=== PATIENT | male | born 1975 | race Caucasian/White ===

== ENCOUNTER 2020-11-29 17:35 | Emergency (ER) | payer OTHER ==
[2020-11-29] MEDS ORDERED: CEPHALEXIN 500MG STARTER PACK 4 CAP BTL PO STA (19:10)
[2020-11-29] MEDS ORDERED: SULFAMETH-TMP DS STARTER PACK 2 TAB BTL PO STA (19:10)
--- NOTE | 2020-11-29 19:15 | ED ---
General Adult HPI - General Chief complaint: Skin/Abscess/Foreign Body Stated complaint: Ingrown Hair on Stomach Time Seen by Provider: 11/29/20 18:36 Source: patient, RN notes reviewed Mode of arrival: ambulatory Limitations: no limitations - History of Present Illness Initial comments: 45-year-old male presents to the emergency room for a chief complaint of redness on the abdomen. Patient states this started a couple days ago as a small bump and now the redness is spreading. Patient denies any fevers. Patient states he does have Humira injections and the last one in this area was 2 weeks ago. Denies any other symptoms or constitutional symptoms.Patient has no other complaints at this time including shortness of breath, chest pain, abdominal pain, nausea or vomiting, headache, or visual changes. - Related Data Previous Rx's Medication Instructions Recorded Cephalexin [Keflex] 500 mg PO Q6HR 10 Days #40 cap 11/29/20 Sulfamethox-Tmp 800-160Mg [Bactrim 1 tab PO Q12HR #20 tab 11/29/20 DS 800-160 mg] Allergies Allergy/AdvReac Type Severity Reaction Status Date / Time No Known Allergies Allergy Verified 11/29/20 17:48 Review of Systems ROS Statement: Those systems with pertinent positive or pertinent negative responses have been documented in the HPI. ROS Other: All systems not noted in ROS Statement are negative. Past Medical History Additional Past Medical History / Comment(s): hyrocephulus. OCD History of Any Multi-Drug Resistant Organisms: None Reported Additional Past Surgical History / Comment(s): shunt Past Psychological History: Anxiety Smoking Status: Never smoker Past Alcohol Use History: None Reported Past Drug Use History: None Reported General Exam Limitations: no limitations General appearance: alert Head exam: Present: atraumatic Eye exam: Present: normal appearance ENT exam: Present: normal exam, mucous membranes moist Neck exam: Present: normal inspection, full ROM Respiratory exam: Present: normal lung sounds bilaterally. Absent: respiratory distress Cardiovascular Exam: Present: regular rate, normal rhythm GI/Abdominal exam: Present: soft, normal bowel sounds, other (Patient has a 6 cm x 3 cm area of erythema consistent with cellulitis on the left lower abdomen lateral to the umbilicus. There is a small 1 cm x 1 cm area of induration in the center of this.). Absent: distended, tenderness, guarding, rebound, rigid Course Vital Signs 11/29/20 17:45 Temperature 98.7 F Pulse Rate 94 Respiratory 20 Rate Blood Pressure 138/87 O2 Sat by Pulse 100 Oximetry Procedures - Incision & Drainage Consent Obtained: verbal consent Site: abdomen I&D Cleaning Method: Chloroprep Sterile Field Used?: Yes Scalpel Used: #11 (18 G needle) I&D Drainage Obtained: Blood Patient Tolerated Procedure: well, no complications Medical Decision Making - Medical Decision Making Patient does have an area of suspected cellulitis. I did attempt to incise and drain the small induration however no purulent material expelled. I did recommend he do warm compresses. He was started on antibiotics. He will speak to his physician about his Humira injections. He understands that he is immunocompromised and will return if symptoms are not improving. I discussed this case with attending Dr. Lilly who agrees with this assessment and treatment plan. Disposition Clinical Impression: Cellulitis Disposition: HOME SELF-CARE Condition: Good Instructions (If sedation given, give patient instructions): Abdominal Pain (ED) Additional Instructions: Please take antibiotics as directed. If redness is spreading across the line significantly return to the emergency room. Apply warm compresses as often as possible as there may be a small abscess as well Otherwise follow-up with your doctor in one to 2 days. 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 Prescriptions: Sulfamethox-Tmp 800-160Mg [Bactrim DS 800-160 mg] 1 tab PO Q12HR #20 tab Cephalexin [Keflex] 500 mg PO Q6HR 10 Days #40 cap Is patient prescribed a controlled substance at d/c from ED?: No Referrals: Angel Luis Shelton [STAFF PHYSICIAN] - 1-2 days Time of Disposition: 19:11
[2020-11-29 19:42] VITALS: BP 140/83; PULSE 98; RESP 18; TEMP 97.7
== END 2020-11-29 19:38 | disposition home or self-care (01) ==
LOC: EC 17:35
DX: L03.311 Cellulitis of abdominal wall (principal)
CPT/HCPCS: 10060; 99283

== ENCOUNTER 2021-02-17 07:24 | Inpatient (IN) | payer OTHER ==
[2021-02-17] MEDS ORDERED: VANCOMYCIN IV PER PHARMACY 1 EACH MISC MISCELLANE PRN (08:46)
[2021-02-17] MEDS ORDERED: AMPICILLIN-SULBACTAM 3 GM in SODIUM CHLORIDE 0.9% 100 ML IVPB STA (08:46)
[2021-02-17] MEDS ORDERED: NALOXONE 0.4 MG/ML 1 ML VIAL IV PRN (08:50)
[2021-02-17] MEDS ORDERED: traMADol 50 MG TAB PO PRN (08:50)
[2021-02-17] MEDS ORDERED: ACETAMINOPHEN TAB 325 MG TAB PO PRN (08:50)
--- NOTE | 2021-02-17 08:50 | ED ---
General Adult HPI - General Chief complaint: Skin/Abscess/Foreign Body Stated complaint: BOIL ON BACK SIDE Time Seen by Provider: 02/17/21 08:10 Source: patient, RN notes reviewed Mode of arrival: ambulatory Limitations: no limitations - History of Present Illness Initial comments: Patient is a pleasant 45-year-old male presenting to the emergency Department with complaints of a sore to his left buttocks. Onset of symptoms was around 6 days ago. This has been aggressively worsen, especially today. Patient is was a little bit of drainage today. Patient has had somewhat similar symptoms previously however not as severe. No fevers. Discomfort is moderate, increases with touch. 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 - Related Data Previous Rx's Medication Instructions Recorded Cephalexin [Keflex] 500 mg PO Q6HR 10 Days #40 cap 11/29/20 Sulfamethox-Tmp 800-160Mg [Bactrim 1 tab PO Q12HR #20 tab 11/29/20 DS 800-160 mg] Allergies Allergy/AdvReac Type Severity Reaction Status Date / Time No Known Allergies Allergy Verified 02/17/21 07:27 Review of Systems ROS Statement: Those systems with pertinent positive or pertinent negative responses have been documented in the HPI. ROS Other: All systems not noted in ROS Statement are negative. Constitutional: Denies: fever Eyes: Denies: eye pain ENT: Denies: ear pain Respiratory: Denies: cough Cardiovascular: Denies: chest pain Endocrine: Denies: fatigue Gastrointestinal: Denies: abdominal pain Genitourinary: Denies: dysuria Musculoskeletal: Denies: back pain Skin: Reports: as per HPI Neurological: Denies: headache Past Medical History Additional Past Medical History / Comment(s): hyrocephulus, ankelosis spinalitis. OCD History of Any Multi-Drug Resistant Organisms: None Reported Additional Past Surgical History / Comment(s): shunt Past Psychological History: Anxiety Smoking Status: Never smoker Past Alcohol Use History: None Reported Past Drug Use History: None Reported General Exam Limitations: no limitations General appearance: alert, in no apparent distress Head exam: Present: normocephalic Eye exam: Present: normal appearance Neck exam: Present: normal inspection Respiratory exam: Present: normal lung sounds bilaterally Cardiovascular Exam: Present: regular rate, normal rhythm GI/Abdominal exam: Present: soft. Absent: tenderness Extremities exam: Present: normal inspection Neurological exam: Present: alert Psychiatric exam: Present: normal affect, normal mood Skin exam: Present: other (Left side of buttocks with approximately 3 cm open abscess area with surrounding cellulitis approximately 4 x 8 cm) Course Vital Signs 02/17/21 07:27 Temperature 98.2 F Pulse Rate 87 Respiratory 18 Rate Blood Pressure 129/82 O2 Sat by Pulse 100 Oximetry Medical Decision Making - Medical Decision Making I was able to manually express moderate to large amount of pus, approximately 3- 5 mL. Secondary to patient having immunocompromised with Humira is felt patient could benefit from IV antibiotics. Case was discussed with Dr. tejada, who will admit covering for this [facility]. Disposition Clinical Impression: Abscess of buttock, left Disposition: ADMITTED IP TO THIS HOSP Is patient prescribed a controlled substance at d/c from ED?: No Referrals: Kati Guerrero NPC [Primary Care Provider] - 1-2 days Decision Time: 08:50
--- NOTE | 2021-02-17 09:05 | P.HPIM ---
History of Present Illness This is a pleasant 45 years old male with past medical history of ankylosing spondylitis on Humira, hydrocephalus, anxiety and a positive compulsive disorder. Presents because of left gluteal HAS noticed a few days ago with no history of trauma. No fever or abdominal pain, no nausea vomiting or diarrhea. No chest pain or dyspnea. No change in urine or bowel habits. Patient is afebrile and vitals stable. No labs or imaging were done. The emergency room he started on Unasyn and IV vancomycin and that 1 30 ml/h. Wound culture is ordered Review of Systems CONSTITUTIONAL: No fever, no malaise, no fatigue. HEENT: No recent visual problems or hearing problems. Denied any sore throat. CARDIOVASCULAR: No orthopnea, PND, no palpitations, no syncope. PULMONARY: No shortness of breath, no cough, no hemoptysis. GASTROINTESTINAL: No diarrhea, no nausea, no vomiting, no abdominal pain. Normoa ctive bowel sounds. NEUROLOGICAL: No headaches, no weakness, no numbness. HEMATOLOGICAL: Denies any bleeding or petechiae. GENITOURINARY: Denies any burning micturition, frequency, or urgency. MUSCULOSKELETAL/RHEUMATOLOGICAL: Denies any joint pain, swelling, or any muscle pain. ENDOCRINE: Denies any polyuria or polydipsia. Past Medical History Additional Past Medical History / Comment(s): hyrocephulus, ankelosis spinalitis. OCD History of Any Multi-Drug Resistant Organisms: None Reported Additional Past Surgical History / Comment(s): shunt Past Psychological History: Anxiety Smoking Status: Never smoker Past Alcohol Use History: None Reported Past Drug Use History: None Reported Medications and Allergies Home Medications Medication Instructions Recorded Confirmed Type Cephalexin [Keflex] 500 mg PO Q6HR 10 Days #40 cap 11/29/20 Rx Sulfamethox-Tmp 800-160Mg [Bactrim 1 tab PO Q12HR #20 tab 11/29/20 Rx DS 800-160 mg] Allergies Allergy/AdvReac Type Severity Reaction Status Date / Time No Known Allergies Allergy Verified 02/17/21 07:27 Physical Exam Vitals: Vital Signs Temp Pulse Resp BP Pulse Ox 02/17/21 07:27 98.2 F 87 18 129/82 100 Intake and Output 02/16/21 02/17/21 02/17/21 22:59 06:59 14:59 Other: Weight 54.431 kg GENERAL: The patient is alert and oriented x3, not in any acute distress. Well developed, well nourished. HEENT: Pupils are round and equally reacting to light. EOMI. No scleral icterus. No conjunctival pallor. Normocephalic, atraumatic. No pharyngeal erythema. No thyromegaly. CARDIOVASCULAR: S1 and S2 present. No murmurs, rubs, or gallops. PULMONARY: Chest is clear to auscultation, no wheezing or crackles. ABDOMEN: Soft, nontender, nondistended, normoactive bowel sounds. No palpable organomegaly. -Left gluteal abscess 1-2 inches with surrounding area of cellulitis, close to the gluteal fissure MUSCULOSKELETAL: No joint swelling or deformity. EXTREMITIES: No cyanosis, clubbing, or pedal edema. NEUROLOGICAL: Gross neurological examination did not reveal any focal deficits. SKIN: No rashes. No petechiae Assessment and Plan Assessment: Left gluteal abscess with surrounding cellulitis History of ankylosing spondylitis History of hydrocephalus History of OCD and anxiety, not in active tissue Plan: This is a pleasant 45 years old male who presents with Left gluteal abscess. Continue with IV antibiotics and normal saline. Consult surgery and ID team's Labs and medication were reviewed.. Continue same treatment. Continue with symptomatic treatment. Resume home medication. Monitor lytes and vitals. DVT and GI prophylaxis. Further recommendations depends on the clinical course of the patient DVT prophylaxis: Subcutaneous heparin GI Prophylaxis: Pepcid
[2021-02-17] MEDS ORDERED: VANCOMYCIN 1,000 MG in SODIUM CHLORIDE 0.9% 250 ML IVPB ONE (09:15)
[2021-02-17] MEDS: SODIUM CHLORIDE 0.9% 1,000 ML IV SCH (09:35)
[2021-02-17 09:38] LABS: Basophils # (A) 0.1 k/uL (0-0.2); Basophils % (A) 1 %; Eosinophils # (A) 0.1 k/uL (0-0.7); Eosinophils % (A) 2 %; HCT 44.9 % (39.0-53.0); HGB 15.8 gm/dL (13.0-17.5); Lymphocytes # (A) 1.2 k/uL (1.0-4.8); Lymphocytes % (A) 14 %; MCH 30.1 pg (25.0-35.0); MCHC 35.3 g/dL (31.0-37.0); MCV 85.5 fL (80.0-100.0); Mean Platelet Volume 7.5; Monocytes # (A) 0.5 k/uL (0-1.0); Monocytes % (A) 6 %; Neutrophils # (A) 6.7 k/uL (1.3-7.7); Neutrophils % (A) 76 %; Platelet Count 212 k/uL (150-450); RBC 5.25 m/uL (4.30-5.90); RDW 11.7 % (11.5-15.5); WBC 8.8 k/uL (3.8-10.6)
[2021-02-17 09:47] LABS: Partial Thromboplastin Time 23.8 sec (22.0-30.0)
[2021-02-17 09:48] LABS: ALT 12 U/L (4-49); AST 32 U/L (17-59); African American GFR (CKD) >90 (>60 ml/min/1.73 sqM); Albumin 4.4 g/dL (3.5-5.0); Alkaline Phosphatase 73 U/L (38-126); Anion Gap 12 mmol/L; Blood Urea Nitrogen 18 mg/dL (9-20); Calcium 9.2 mg/dL (8.4-10.2); Carbon Dioxide 27 mmol/L (22-30); Chloride 103 mmol/L (98-107); Glucose 92 mg/dL (74-99); Non-African American GFR(CKD) >90 (>60 ml/min/1.73 sqM); Potassium 4.4 mmol/L (3.5-5.1); Sodium 142 mmol/L (137-145); Total Bilirubin 0.9 mg/dL (0.2-1.3); Total Protein 7.4 g/dL (6.3-8.2)
[2021-02-17] MEDS: AMPICILLIN-SULBACTAM 1.5 GM in SODIUM CHLORIDE 0.9% 50 ML IVPB SCH (13:57)
[2021-02-17] MEDS: VANCOMYCIN 1,000 MG in SODIUM CHLORIDE 0.9% 250 ML IVPB SCH (20:39)
[2021-02-17] MEDS: HEPARIN SODIUM,PORCINE 5,000 UNIT/ML 1 ML VIAL SQ SCH (20:44)
[2021-02-17] MEDS: FAMOTIDINE 20 MG TAB PO SCH (20:44)
[2021-02-17] MEDS ORDERED: FAMOTIDINE 20 MG/2 ML VIAL IV SCH (21:00)
[2021-02-18] MEDS: AMPICILLIN-SULBACTAM 1.5 GM in SODIUM CHLORIDE 0.9% 50 ML IVPB SCH ×2 (00:36→10:16)
[2021-02-18] MEDS: SODIUM CHLORIDE 0.9% 1,000 ML IV SCH ×2 (05:43→10:23)
--- NOTE | 2021-02-18 06:19 | CONS ---
CONSULTATION DATE OF SERVICE: 02/17/2021 REASON FOR CONSULTATION: Left gluteal abscess. HISTORY OF PRESENT ILLNESS: The patient is a 45-year-old male presenting to the ER with chief complaints of left gluteal pain swelling and redness. Apparently the patient noticed a pimple about 6 days ago. The patient apparently tried to drain it and subsequently became more swollen and red and painful. The patient's pain seems to be more of a throbbing in nature 5 to 6/10, no radiation, with associated swelling, redness and purulent drainage. Patient presented to the hospital. The patient was evaluated by the ER physician and patient mentioned he did . Cultures have been obtained which are currently pending. Patient was started on vancomycin and Unasyn and admitted to the hospital. Infectious Disease was consulted for further management of antibiotic therapy. REVIEW OF SYSTEMS: Positive points have been mentioned in HPI. Rest of systems are negative. PAST MEDICAL HISTORY: Ankylosing spondylitis, OCD, hydrocephalus and anxiety. PAST SURGICAL HISTORY: Shunt placement. SOCIAL HISTORY: Denies smoking, drinking or drug use. FAMILY HISTORY: No pertinent findings noticed. ALLERGIES: No known drug allergies. MEDICATIONS: The patient is currently on Tylenol, Unasyn, Pepcid, heparin, Narcan, Ultram, and vancomycin Pharmacy to dose. PHYSICAL EXAMINATION: VITAL SIGNS: Blood pressure 122/80 with a pulse of 82, temperature 98.2, he is 99% on room air. GENERAL DESCRIPTION: Patient is a middle-aged male lying in bed in no distress. HEENT: Examination shows no pallor or scleral icterus. Oral mucous membrane is dry. NECK: Trachea central, no thyromegaly. LUNGS: Unlabored breathing, clear to auscultation. No wheeze or crackle. HEART: S1-S2, regular rate and rhythm. ABDOMEN: Soft, no tenderness. No guarding or rigidity. EXTREMITIES: No edema of the feet. SKIN: Gluteal area did have an area of induration, swelling, redness and purulent drainage. NEUROLOGICAL: Patient is awake, alert, oriented times three. Mood and affect normal. LABS: Hemoglobin is 15.5, white 8.8. BUN of 18, creatinine 0.85. Cultures currently pending. DIAGNOSTIC IMPRESSION AND PLAN: Patient with left gluteal abscess, likely from a gram-positive skin ariella such as Methicillin resistant Staphylococcus aureus or Streptococcus species. Clinically doubt a Gram-negative infection. PLAN: 1. Vancomycin, Pharmacy to dose target of 15. 2. Gentle IV fluid. 3. We will follow on clinical condition as well as cultures to further adjust medication if needed. Thank you for this consultation. Will follow this patient along with you. NOMAN / REHANN: [id number] /
[2021-02-18] MEDS ORDERED: AMPICILLIN-SULBACTAM 1.5 GM in SODIUM CHLORIDE 0.9% 50 ML IVPB SCH (08:00)
[2021-02-18] MEDS: VANCOMYCIN 1,000 MG in SODIUM CHLORIDE 0.9% 250 ML IVPB SCH ×3 (10:16→16:32)
[2021-02-18] MEDS: HEPARIN SODIUM,PORCINE 5,000 UNIT/ML 1 ML VIAL SQ SCH ×2 (10:22→20:07)
[2021-02-18] MEDS: FAMOTIDINE 20 MG TAB PO SCH ×2 (10:22→20:07)
--- NOTE | 2021-02-18 19:16 | P.GSCN ---
History of Present Illness Consult date: 02/18/21 History of present illness: 45yo Male presented to the emergency department with complaints of gluteal pain. He states that he did have a site that he felt was a pimple a few days ago and that this site increased in size and became more painful over the past few days after he attempted to pop the pimple. He denies any trauma to the area. He does have a medical history of ankylosing spondylitis and hydrocephalus. He is on Humira therapy at this time. He denies having any previous abscesses in this location but states that he has had 2 on his abdomen in recent months. He states that the ED did drain somepurulent material from the asite and that it has been draining since. He has been started on IV abx and has had ID evaluation. Review of Systems All systems: negative Past Medical History Past Medical History: Asthma Additional Past Medical History / Comment(s): Hydrocephalus as 4 month old child/shunts then shunts removed, ankylosing spondylosis/cervical and low back pain, skin boils, nedphrolithiasis/pt passed stones on his own. History of Any Multi-Drug Resistant Organisms: None Reported Additional Past Surgical History / Comment(s): Brain shunt/then removed, vasectomy Smoking Status: Never smoker - Past Family History Father Additional Family Medical History / Comment(s): ankylosing spondylosis, pre diabetes. Mother Family Medical History: Thyroid Disorder Additional Family Medical History / Comment(s): hypothryroid Medications and Allergies Home Medications Medication Instructions Recorded Confirmed Type Adalimumab [Humira Pen] 40 mg SQ Q14D 02/17/21 02/17/21 History Azithromycin [Zithromax Z-pack (6 See Taper PO DAILY 02/17/21 02/17/21 History tabs)] Escitalopram [Lexapro] 20 mg PO DAILY 02/17/21 02/17/21 History Gabapentin [Neurontin] 300 mg PO TID 02/17/21 02/17/21 History Allergies Allergy/AdvReac Type Severity Reaction Status Date / Time No Known Allergies Allergy Verified 02/17/21 09:16 Surgical - Exam Osteopathic Statement: *. No significant issues noted on an osteopathic structural exam other than those noted in the History and Physical/Consult. Vital Signs Temp Pulse Resp BP Pulse Ox 98.2 F 87 18 129/82 100 02/17/21 07:27 02/17/21 07:27 02/17/21 07:27 02/17/21 07:27 02/17/21 07:27 - General well nourished, no distress - Eyes normal ocular movement - ENT no hearing loss - Neck trachea midline - Respiratory normal respiratory effort - Abdomen Abdomen: soft, non tender - Rectum Left gluteal abscess site with active purulent drainage and surrounding induration, somehwat tender to palpation, no significant fluctuance - Psychiatric oriented to time, oriented to person, oriented to place Results - Labs 02/17/21 09:29 02/17/21 09: Microbiology - Last 24 Hours (Table) 02/17/21 09:29 Gram Stain - Preliminary Buttock Wound Culture - Preliminary Presumptive MRSA 02/17/21 09: Blood Culture - Preliminary Blood No Growth after 24 hours 02/17/21 09: Blood Culture - Preliminary Blood No Growth after 24 hours Assessment and Plan Plan: 45yo M with Left gluteal abscess - Currently the abscess is actively draining and patiewnt is on IV antibiotics for treatment with ID evaluation and recommendations - Due to active drainage, I would not recommend any further surgical incision and drainage at this time. However, patient is on immunosuppressive therapy with Humira, so the infected site will have to be closely monitored for any worsening symptoms. Will continue to monitor and provide recommendations based on clinical progress.
--- NOTE | 2021-02-18 21:40 | P.PN ---
Subjective This is a pleasant 45 years old male with past medical history of ankylosing spondylitis on Humira, hydrocephalus, anxiety and a positive compulsive disorder. Presents because of left gluteal HAS noticed a few days ago with no history of trauma. No fever or abdominal pain, no nausea vomiting or diarrhea. No chest pain or dyspnea. No change in urine or bowel habits. Patient is afebrile and vitals stable. No labs or imaging were done. The emergency room he started on Unasyn and IV vancomycin and that 1 30 ml/h. Wound culture is ordered 02/18/2021 Patient gluteal abscess is draining and is improving as well as surrounding cellulitis, Once culture is growing MRSA Patient remains on IV vancomycin and Unasyn per ID team recommendation, also he is on normal saline at 75 mL/h Surgery team input is appreciated, no need for surgical intervention now but close monitoring as he is on immunosuppressive therapy Review of Systems cONSTITUTIONAL: No fever, no malaise, no fatigue. HEENT: No recent visual problems or hearing problems. Denied any sore throat. CARDIOVASCULAR: No orthopnea, PND, no palpitations, no syncope. PULMONARY: No shortness of breath, no cough, no hemoptysis. GASTROINTESTINAL: No diarrhea, no nausea, no vomiting, no abdominal pain. Normoactive bowel sounds. NEUROLOGICAL: No headaches, no weakness, no numbness. Active Medications Generic Name Dose Route Start Last Admin Trade Name Freq PRN Reason Stop Dose Admin Acetaminophen 650 mg 02/17/21 08:50 Acetaminophen Tab 325 Mg Tab PO Q6HR PRN Mild Pain or Fever > 100.5 Famotidine 20 mg 02/17/21 21:00 02/18/21 20:07 Famotidine 20 Mg Tab PO 20 mg BID LUTHER Administration Heparin Sodium (Porcine) 5,000 unit 02/17/21 21:00 02/18/21 20:07 Heparin Sodium,Porcine 5,000 Unit/Ml 1 Ml Vial SQ 5,000 unit Q12HR LUTHER Administration Sodium Chloride 1,000 mls @ 75 mls/hr 02/17/21 08:45 02/18/21 10:23 Saline 0.9% IV 75 mls/hr .[id number] LUTHER Administration Vancomycin HCl 1,000 mg/ 250 mls @ 125 mls/hr 02/18/21 08:00 02/18/21 16:32 Sodium Chloride IVPB 125 mls/hr Q8H LUTHER Administration Miscellaneous Information 1 each 02/19/21 07:00 Vancomycin Trough Due 1 Each Misc MISCELLANE 02/19/21 07:01 ONCE ONE Naloxone HCl 0.2 mg 02/17/21 08:50 Naloxone 0.4 Mg/Ml 1 Ml Vial IV Q2M PRN Opioid Reversal Tramadol HCl 50 mg 02/17/21 08:50 Tramadol 50 Mg Tab PO Q6H PRN Moderate Pain Objective - Vital Signs Vital signs: Vital Signs Temp 98.1 F 02/18/21 20:00 Pulse 66 02/18/21 20:00 Resp 16 02/18/21 20:00 BP 113/73 02/18/21 20:00 Pulse Ox 96 02/18/21 20:00 Intake & Output 02/18/21 02/18/21 02/19/21 06:59 18:59 06:59 Intake Total 1160 Output Total 900 Balance 260 Weight 54.431 kg Intake: Intake, IV Titration 450 Amount Ampicillin-Sulbactam 1.5 100 gm In Sodium Chloride 0.9 % 50 ml @ 100 mls/hr IVPB Q6H [facility] Rx#:[id number] Ampicillin-Sulbactam 1.5 100 gm In Sodium Chloride 0.9 % 50 ml @ 100 mls/hr IVPB Q6H [facility] Rx#:[id number] Vancomycin 1,000 mg In 250 Sodium Chloride 0.9% 250 ml @ 125 mls/hr IVPB Q8H [facility] Rx#:[id number] Oral 710 Output: Urine 900 Other: # Voids 1 # Bowel Movements 1 - Labs CBC & Chem 7: 02/17/21 09:29 02/17/21 09:29 Labs: Microbiology - Last 24 Hours (Table) 02/17/21 09:29 Gram Stain - Preliminary Buttock Wound Culture - Preliminary Presumptive MRSA 02/17/21 09:29 Blood Culture - Preliminary Blood No Growth after 24 hours 02/17/21 09:29 Blood Culture - Preliminary Blood No Growth after 24 hours
--- NOTE | 2021-02-18 23:58 | PN ---
PROGRESS NOTE DATE OF SERVICE: 02/18/2021. REASON FOR FOLLOW UP: Left gluteal abscess and MRSA. INTERVAL HISTORY: Patient is currently afebrile. The patient is breathing comfortably. Denies having any chest pain or shortness of breath or cough. Overall pain and discomfort to the left gluteal area has decreased. PHYSICAL EXAMINATION: Blood pressure 113/73 with a pulse of 66, temperature 98.1. He is 96% on room air. General description is a middle-aged male lying in bed in no distress. Respiratory system: Unlabored breathing, clear to auscultation anteriorly. Heart S1, S2. Regular rate and rhythm. Abdomen soft, no tenderness. LABS: Buttock culture with presumptive MRSA. Blood culture has been negative. DIAGNOSTIC IMPRESSION AND PLAN: Patient with left gluteal abscess status post spontaneous drainage. Culture with presumptive MRSA. Patient is covered with vancomycin and Unasyn discontinued. Continue supportive care. MMODL / IJN: [id number] /
[2021-02-19] MEDS: VANCOMYCIN 1,000 MG in SODIUM CHLORIDE 0.9% 250 ML IVPB SCH ×3 (00:16→16:44)
[2021-02-19] MEDS: SODIUM CHLORIDE 0.9% 1,000 ML IV SCH ×3 (04:58→22:52)
[2021-02-19] MEDS ORDERED: VANCOMYCIN TROUGH DUE 1 EACH MISC MISCELLANE ONE (07:00)
[2021-02-19 07:04] LABS: African American GFR (CKD) >90 (>60 ml/min/1.73 sqM); Non-African American GFR(CKD) >90 (>60 ml/min/1.73 sqM)
[2021-02-19] MEDS: HEPARIN SODIUM,PORCINE 5,000 UNIT/ML 1 ML VIAL SQ SCH ×2 (08:31→21:08)
[2021-02-19] MEDS: FAMOTIDINE 20 MG TAB PO SCH ×2 (08:31→20:46)
--- NOTE | 2021-02-19 14:56 | P.PN ---
Subjective Progress Note Date: 02/19/21 Patient seen and examined at bedside. States he is feeling much better. States the drainage has slowed down. Objective - Vital Signs Vital signs: Vital Signs Temp 97.5 F L 02/19/21 11:05 Pulse 77 02/19/21 11:05 Resp 16 02/19/21 11:05 BP 134/85 02/19/21 11:05 Pulse Ox 98 02/19/21 11:05 Intake & Output 02/18/21 02/19/21 02/19/21 18:59 06:59 18:59 Intake Total 1160 590 Output Total 900 Balance 260 590 Weight 54.431 kg Intake: Intake, IV Titration 450 Amount Ampicillin-Sulbactam 1.5 100 gm In Sodium Chloride 0.9 % 50 ml @ 100 mls/hr IVPB Q6H [facility] Rx#:[id number] Ampicillin-Sulbactam 1.5 100 gm In Sodium Chloride 0.9 % 50 ml @ 100 mls/hr IVPB Q6H [facility] Rx#:[id number] Vancomycin 1,000 mg In 250 Sodium Chloride 0.9% 250 ml @ 125 mls/hr IVPB Q8H [facility] Rx#:[id number] Oral 710 590 Output: Urine 900 Other: Voiding Method Toilet Toilet # Voids 1 2 # Bowel Movements 1 - Constitutional General appearance: Present: cooperative, no acute distress - Additional findings Additional findings: Left intergluteal abscess site with improved erythema from yesterday, some mild continued purulent drainage, no palpable fluctuance, somewhat improved induration - Labs CBC & Chem 7: 02/17/21 09:29 02/19/21 06:15 Labs: Microbiology - Last 24 Hours (Table) 02/17/21 09:29 Blood Culture - Preliminary Blood No Growth after 48 hours 02/17/21 09:29 Blood Culture - Preliminary Blood No Growth after 48 hours 02/17/21 09:29 Gram Stain - Final Buttock Wound Culture - Final Methicillin resist S. aureus Assessment and Plan Plan: 45yo M with Left gluteal abscess - Currently the abscess is actively draining and patient is on IV antibiotics for treatment with ID evaluation and recommendations - Appears to be much improved from yesterday, no plan for surgical intervention at this time. - Due to active drainage, I would not recommend any further surgical incision and drainage at this time. However, patient is on immunosuppressive therapy with Humira, so the infected site will have to be closely monitored for any worsening symptoms. Will continue to monitor and provide recommendations based on clinical progress.
--- NOTE | 2021-02-19 15:28 | P.PN ---
Subjective This is a pleasant 45 years old male with past medical history of ankylosing spondylitis on Humira, hydrocephalus, anxiety and a positive compulsive disorder. Presents because of left gluteal HAS noticed a few days ago with no history of trauma. No fever or abdominal pain, no nausea vomiting or diarrhea. No chest pain or dyspnea. No change in urine or bowel habits. Patient is afebrile and vitals stable. No labs or imaging were done. The emergency room he started on Unasyn and IV vancomycin and that 1 30 ml/h. Wound culture is ordered 02/18/2021 Patient gluteal abscess is draining and is improving as well as surrounding cellulitis, Once culture is growing MRSA Patient remains on IV vancomycin and Unasyn per ID team recommendation, also he is on normal saline at 75 mL/h Surgery team input is appreciated, no need for surgical intervention now but close monitoring as he is on immunosuppressive therapy 02/19/2021 Patient left gluteal abscess is improving on vancomycin. Culture is growing MRSA Surgery input is appreciated, no need for further surgical intervention currently Instructed to hold humira and follow-up with car pick up driver, his car pick up driver is a [place] Dr. Rendon but he is planning to switch it to Dr. Charline bazan in [place] Contact information is provided for the patient Currently continue with vancomycin and monitor creatinine which is normal today at 0.8 Review of Systems cONSTITUTIONAL: No fever, no malaise, no fatigue. HEENT: No recent visual problems or hearing problems. Denied any sore throat. CARDIOVASCULAR: No orthopnea, PND, no palpitations, no syncope. PULMONARY: No shortness of breath, no cough, no hemoptysis. GASTROINTESTINAL: No diarrhea, no nausea, no vomiting, no abdominal pain. Norm oactive bowel sounds. NEUROLOGICAL: No headaches, no weakness, no numbness. Active Medications Generic Name Dose Route Start Last Admin Trade Name Freq PRN Reason Stop Dose Admin Acetaminophen 650 mg 02/17/21 08:50 Acetaminophen Tab 325 Mg Tab PO Q6HR PRN Mild Pain or Fever > 100.5 Famotidine 20 mg 02/17/21 21:00 02/18/21 20:07 Famotidine 20 Mg Tab PO 20 mg BID [facility] Administration Heparin Sodium (Porcine) 5,000 unit 02/17/21 21:00 02/18/21 20:07 Heparin Sodium,Porcine 5,000 Unit/Ml 1 Ml Vial SQ 5,000 unit Q12HR [facility] Administration Sodium Chloride 1,000 mls @ 75 mls/hr 02/17/21 08:45 02/18/21 10:23 Saline 0.9% IV 75 mls/hr .[id number] [facility] Administration Vancomycin HCl 1,000 mg/ 250 mls @ 125 mls/hr 02/18/21 08:00 02/18/21 16:32 Sodium Chloride IVPB 125 mls/hr Q8H [facility] Administration Miscellaneous Information 1 each 02/19/21 07:00 Vancomycin Trough Due 1 Each Misc MISCELLANE 02/19/21 07:01 ONCE ONE Naloxone HCl 0.2 mg 02/17/21 08:50 Naloxone 0.4 Mg/Ml 1 Ml Vial IV Q2M PRN Opioid Reversal Tramadol HCl 50 mg 02/17/21 08:50 Tramadol 50 Mg Tab PO Q6H PRN Moderate Pain Objective - Vital Signs Vital signs: Vital Signs Temp 97.5 F L 02/19/21 11:05 Pulse 77 02/19/21 11:05 Resp 16 02/19/21 11:05 BP 134/85 02/19/21 11:05 Pulse Ox 98 02/19/21 11:05 Intake & Output 02/18/21 02/19/21 02/19/21 18:59 06:59 18:59 Intake Total 1160 590 Output Total 900 Balance 260 590 Weight 54.431 kg Intake: Intake, IV Titration 450 Amount Ampicillin-Sulbactam 1.5 100 gm In Sodium Chloride 0.9 % 50 ml @ 100 mls/hr IVPB Q6H [facility] Rx#:[id number] Ampicillin-Sulbactam 1.5 100 gm In Sodium Chloride 0.9 % 50 ml @ 100 mls/hr IVPB Q6H [facility] Rx#:[id number] Vancomycin 1,000 mg In 250 Sodium Chloride 0.9% 250 ml @ 125 mls/hr IVPB Q8H [facility] Rx#:[id number] Oral 710 590 Output: Urine 900 Other: Voiding Method Toilet Toilet # Voids 1 2 # Bowel Movements 1 - Exam GENERAL: The patient is alert and oriented x3, not in any acute distress. Well developed, well nourished. HEENT: Pupils are round and equally reacting to light. EOMI. No scleral icterus. No conjunctival pallor. Normocephalic, atraumatic. No pharyngeal erythema. No thyromegaly. CARDIOVASCULAR: S1 and S2 present. No murmurs, rubs, or gallops. PULMONARY: Chest is clear to auscultation, no wheezing or crackles. ABDOMEN: Soft, nontender, nondistended, normoactive bowel sounds. No palpable organomegaly. -Left gluteal abscess 1-2 inches with surrounding area of cellulitis, close to the gluteal fissure, improving MUSCULOSKELETAL: No joint swelling or deformity. EXTREMITIES: No cyanosis, clubbing, or pedal edema. NEUROLOGICAL: Gross neurological examination did not reveal any focal deficits. SKIN: No rashes. No petechiae - Labs CBC & Chem 7: 02/17/21 09:29 02/19/21 06:15 Labs: Microbiology - Last 24 Hours (Table) 02/17/21 09:29 Blood Culture - Preliminary Blood No Growth after 48 hours 02/17/21 09:29 Blood Culture - Preliminary Blood No Growth after 48 hours 02/17/21 09:29 Gram Stain - Final Buttock Wound Culture - Final Methicillin resist S. aureus Assessment and Plan Assessment: Left gluteal abscess with surrounding cellulitis secondary to MRSA History of ankylosing spondylitis History of hydrocephalus History of OCD and anxiety, not in active tissue Plan: This is a pleasant 45 years old male who presents with Left gluteal abscess. Continue with IV antibiotics and normal saline. Consult surgery and ID team's Labs and medication were reviewed.. Continue same treatment. Continue with symptomatic treatment. Resume home medication. Monitor lytes and vitals. DVT and GI prophylaxis. Further recommendations depends on the clinical course of the patient DVT prophylaxis: Subcutaneous heparin GI Prophylaxis: Pepcid
[2021-02-20] MEDS: VANCOMYCIN 1,000 MG in SODIUM CHLORIDE 0.9% 250 ML IVPB SCH ×2 (00:08→09:44)
--- NOTE | 2021-02-20 02:55 | PN ---
PROGRESS NOTE DATE OF SERVICE: 02/19/2021. REASON FOR FOLLOW UP: Left gluteal abscess, MRSA. INTERVAL HISTORY: Patient is currently afebrile. The patient is breathing comfortably. Patient denies having any chest pain, shortness of breath or cough. No nausea. No vomiting. No abdominal pain. Pain to the left gluteal area has improved. PHYSICAL EXAMINATION: Blood pressure 114/74, pulse of 92, temperature 98.5. He is 99% on room air. General description is a middle-aged male lying in bed in no distress. Respiratory system: Unlabored breathing, clear to auscultation anteriorly. Heart S1, S2. Regular rate and rhythm. Abdomen soft, no tenderness. Left gluteal area swelling and redness has decreased. LABS: Culture final still pending at time of evaluation this morning. DIAGNOSTIC IMPRESSION AND PLAN: Patient with left gluteal abscess status post drainage. Clinically improved on IV vancomycin. Plan is to finish therapy with oral antibiotics. No need for PICC line or outpatient antibiotics. Continue supportive care. MMODL / IJN: [id number] /
[2021-02-20 07:12] LABS: African American GFR (CKD) >90 (>60 ml/min/1.73 sqM); Non-African American GFR(CKD) >90 (>60 ml/min/1.73 sqM)
[2021-02-20] MEDS: HEPARIN SODIUM,PORCINE 5,000 UNIT/ML 1 ML VIAL SQ SCH (10:02)
[2021-02-20] MEDS: FAMOTIDINE 20 MG TAB PO SCH (10:02)
[2021-02-20 11:36] VITALS: BP 128/81; PULSE 86; RESP 20; TEMP 98.1
--- NOTE | 2021-02-20 14:24 | PN ---
PROGRESS NOTE DATE OF SERVICE: 02/20/2021 REASON FOR FOLLOWUP: Left gluteal MRSA abscess and cellulitis. INTERVAL HISTORY: The patient is currently afebrile. The patient is breathing comfortably. The patient denies having any chest pain, shortness of breath, cough. No abdominal pain or diarrhea. PHYSICAL EXAMINATION: His vital signs are stable. T-max of 98. General description is a middle-aged male lying in bed in no distress. RESPIRATORY SYSTEM: Unlabored breathing, clear to auscultation anteriorly. HEART: S1, S2. Regular rate and rhythm. ABDOMEN: Soft, no tenderness. DIAGNOSTIC IMPRESSION AND PLAN: Patient with left gluteal abscess. Overall improvement. The patient's culture finalized with MRSA sensitive to Bactrim DS. Prescription for Bactrim has been sent to the pharmacy and close outpatient followup. Continue supportive care. NOMAN / REHANN: [id number] /
--- NOTE | 2021-02-20 23:29 | P.DS ---
Providers Date of admission: 02/17/21 08:50 Attending physician: Joey Cole MD Consults: 02/17/21 09:01 Consult Physician Urgent Consulting Provider: Mando Nguyen Consult Reason/Comments: left gluteal abscess Do you want consulting provider notified?: Yes 02/17/21 09:02 Consult Physician Routine Consulting Provider: Gretta Velasquez Consult Reason/Comments: Gluteal abscess Do you want consulting provider notified?: Yes Primary care physician: RENO Parks Hospital Course: Diagnoses: Left gluteal abscess with surrounding cellulitis secondary to MRSA History of ankylosing spondylitis History of hydrocephalus History of OCD and anxiety, not in active tissue Hospital course: This is a pleasant 45 years old male who presents with left gluteal abscess status post I and D drainage in the emergency room with no need for further drainage from surgical team evaluation. Wound culture was growing MRSA and he was treated initially with IV vancomycin and her recommendation of ID team. Patient cellulitis and infection is significantly improved and patient was cleared for discharge by surgery and ID team on short course of oral Bactrim as an outpatient with recommendation for close follow-up with PCP and ID team, patient agrees Patient was instructed to check his blood test with his PCP in one week, possible risks with Bactrim including but not limited to myelosuppression and kidney toxicity are explained for him and he verbalized understanding and acceptance also patient was taking Humira for his connective tissue disease, patient was instructed to hold his Humira and to talk with his pickle pumper within one week for further recommendation about when to start it again as it may contribute to his infection. Patient verbalized understanding and acceptance Problems and management plan were discussed with the patient and he verbalized understanding and acceptance Patient was found stable and can be discharged home however he needs follow-up as an outpatient. Patient was instructed to follow up with PCP within one week and patient agrees Physical exam Gen: patient is a AAOx3, no distress CVS: S1-S2, RRR, no murmur Patient was instructed to follow up with ID team Dr. Velasquez in one week and he agrees to: Make appointment Also patient was instructed to follow up with his pickle pumper in one week and he agrees Lungs: B/L CTA, no wheezing Abdomen: soft, no distention, no tenderness, positive bowel sounds. Left gluteal abscess and small area of surrounding cellulitis are significantly improved Extremity: no leg edema or induration Time spent more than 35 minutes Plan - Discharge Summary Discharge Rx Participant: No New Discharge Prescriptions: New Sulfamethox-Tmp 800-160Mg [Bactrim DS 800-160 mg] 1 tab PO Q12HR #20 tab Continue Gabapentin [Neurontin] 300 mg PO TID Escitalopram [Lexapro] 20 mg PO DAILY Discontinued Azithromycin [Zithromax Z-pack (6 tabs)] See Taper PO DAILY Adalimumab [Humira Pen] 40 mg SQ Q14D Discharge Medication List Escitalopram [Lexapro] 20 mg PO DAILY 02/17/21 [History] Gabapentin [Neurontin] 300 mg PO TID 02/17/21 [History] Sulfamethox-Tmp 800-160Mg [Bactrim DS 800-160 mg] 1 tab PO Q12HR #20 tab 02/20/21 [Rx] Follow up Appointment(s)/Referral(s): Kati Guerrero NPC [Primary Care Provider] - 1-2 days Radha Olivier MD [STAFF PHYSICIAN] - 1 Week ([employer]) Gretta Velasquez MD [STAFF PHYSICIAN] - 1 Week Patient Instructions/Handouts: Abscess (ED) Activity/Diet/Wound Care/Special Instructions: Resume her previous diet Activity is restricted to you see your doctor Follow-up with your pickle pumper Dr. Rendon in [place] or Dr. Charline Aguilar in [place] within one week. Discussed with your doctor when to resume Humira Discharge Disposition: HOME SELF-CARE
== END 2021-02-20 17:58 | disposition home or self-care (01) | DRG 603 ==
LOC: EC 07:24 → 5NMEDONC 08:50
PROVIDERS: ADMIT Internal Medicine; ATTEND Internal Medicine
DX: L02.31 Cutaneous abscess of buttock (principal); D84.9 Immunodeficiency, unspecified; L03.317 Cellulitis of buttock; M45.9 Ankylosing spondylitis of unspecified sites in spine; B95.62 Methicillin resistant Staphylococcus aureus infection as the cause of diseases classified elsewhere; Z20.822 Contact with and (suspected) exposure to COVID-19; F42.9 Obsessive-compulsive disorder, unspecified; F41.9 Anxiety disorder, unspecified; Z79.2 Long term (current) use of antibiotics; Z79.899 Other long term (current) drug therapy
CPT/HCPCS: 80053; 80202; 82565; 83605; 85025; 85610; 85730; 87040; 87070; 87077; 87186; 87205; 87635; 99284

== ENCOUNTER 2021-06-04 08:48 | Emergency (ER) | payer OTHER ==
[2021-06-04] MEDS ORDERED: diphenhydrAMINE 50 MG/ML 1 ML VIAL IVP STA (09:04)
[2021-06-04] MEDS ORDERED: METOCLOPRAMIDE 5 MG/ML 2 ML VIAL IVP STA (09:04)
[2021-06-04] MEDS ORDERED: KETOROLAC 15 MG/ML 1 ML VIAL IVP STA (09:04)
--- NOTE | 2021-06-04 09:14 | ED ---
Headache HPI - General Chief Complaint: Headache Stated Complaint: Headache Time Seen by Provider: 06/04/21 08:57 Source: patient, RN notes reviewed Mode of arrival: ambulatory Limitations: no limitations - History of Present Illness Initial Comments: 46-year-old male presents emergency Department chief complaint of fatigue, headache, generalized not feeling well. Patient states that he has underlying ankylosing spondylitis and states he does suffer with chronic migraine states is very mild headache in nature. Patient states that he just been low more tired than usual which is most worrisome symptom. Denies any neck pain neck stiffness no photophobia no focal weakness as nausea vomiting fevers chills diarrhea constipation no sick contacts. - Related Data Home Medications Medication Instructions Recorded Confirmed Escitalopram [Lexapro] 20 mg PO DAILY 02/17/21 02/17/21 Gabapentin [Neurontin] 300 mg PO TID 02/17/21 02/17/21 Previous Rx's Medication Instructions Recorded Sulfamethox-Tmp 800-160Mg [Bactrim 1 tab PO Q12HR #20 tab 02/20/21 DS 800-160 mg] Allergies Allergy/AdvReac Type Severity Reaction Status Date / Time No Known Allergies Allergy Verified 06/04/21 08:52 Review of Systems ROS Statement: Those systems with pertinent positive or pertinent negative responses have been documented in the HPI. ROS Other: All systems not noted in ROS Statement are negative. Past Medical History Past Medical History: Asthma Additional Past Medical History / Comment(s): Hydrocephalus as 4 month old child/shunts then shunts removed, ankylosing spondylosis/cervical and low back pain, skin boils, nedphrolithiasis/pt passed stones on his own. History of Any Multi-Drug Resistant Organisms: MRSA Date of last positivie culture/infection: 02/17/21 MDRO Source:: Buttock Additional Past Surgical History / Comment(s): Brain shunt/then removed, vasectomy Past Psychological History: Anxiety Smoking Status: Never smoker - Past Family History Father Additional Family Medical History / Comment(s): ankylosing spondylosis, pre diabetes. Mother Family Medical History: Thyroid Disorder Additional Family Medical History / Comment(s): hypothryroid General Exam Limitations: no limitations General appearance: alert, in no apparent distress Head exam: Present: atraumatic, normocephalic, normal inspection Eye exam: Present: normal appearance, PERRL, EOMI. Absent: scleral icterus, conjunctival injection, periorbital swelling ENT exam: Present: normal exam, normal oropharynx, mucous membranes moist Neck exam: Present: normal inspection, full ROM. Absent: tenderness, mening ismus, lymphadenopathy Respiratory exam: Present: normal lung sounds bilaterally. Absent: respiratory distress, wheezes, rales, rhonchi, stridor Cardiovascular Exam: Present: regular rate, normal rhythm, normal heart sounds. Absent: systolic murmur, diastolic murmur, rubs, gallop, clicks GI/Abdominal exam: Present: soft, normal bowel sounds. Absent: distended, tenderness, guarding, rebound, rigid Neurological exam: Present: alert, oriented X3, CN II-XII intact, reflexes normal. Absent: motor sensory deficit Skin exam: Present: warm, dry, intact, normal color. Absent: rash Course Vital Signs 06/04/21 08:48 Temperature 97.5 F L Pulse Rate 78 Respiratory 18 Rate Blood Pressure 122/87 O2 Sat by Pulse 100 Oximetry Medical Decision Making - Medical Decision Making 46-year-old male present emergency from for fatigue headache, vague symptoms labs unremarkable he does feel slightly improved patient we discharged return parameters were discussed. - Lab Data Result diagrams: 06/04/21 09:17 06/04/21 09:17 Lab Results 06/04/21 06/04/21 Range/Units 09:17 09:17 WBC 5.7 (3.8-10.6) k/uL RBC 5.51 (4.30-5.90) m/uL Hgb 16.6 (13.0-17.5) gm/dL Hct 46.7 (39.0-53.0) % MCV 84.7 (80.0-100.0) fL MCH 30.2 (25.0-35.0) pg MCHC 35.6 (31.0-37.0) g/dL RDW 12.0 (11.5-15.5) % Plt Count 208 (150-450) k/uL MPV 7.0 Neutrophils % 59 % Lymphocytes % 28 % Monocytes % 8 % Eosinophils % 1 % Basophils % 1 % Neutrophils # 3.4 (1.3-7.7) k/uL Lymphocytes # 1.6 (1.0-4.8) k/uL Monocytes # 0.4 (0-1.0) k/uL Eosinophils # 0.1 (0-0.7) k/uL Basophils # 0.1 (0-0.2) k/uL Sodium 141 (137-145) mmol/L Potassium 4.2 (3.5-5.1) mmol/L Chloride 105 (98-107) mmol/L Carbon Dioxide 29 (22-30) mmol/L Anion Gap 7 mmol/L BUN 18 (9-20) mg/dL Creatinine 0.78 (0.66-1.25) mg/dL Est GFR (CKD-EPI)AfAm >90 (>60 ml/min/1.73 sqM) Est GFR (CKD-EPI)NonAf >90 (>60 ml/min/1.73 sqM) Glucose 93 (74-99) mg/dL Calcium 9.4 (8.4-10.2) mg/dL Total Bilirubin 0.7 (0.2-1.3) mg/dL AST 27 (17-59) U/L ALT 16 (4-49) U/L Alkaline Phosphatase 57 (38-126) U/L Total Protein 7.1 (6.3-8.2) g/dL Albumin 4.6 (3.5-5.0) g/dL Disposition Clinical Impression: Fatigue, Headache Disposition: HOME SELF-CARE Condition: Stable Instructions (If sedation given, give patient instructions): Acute Headache (E D) Additional Instructions: Please return to the Emergency Department if symptoms worsen or any other concerns. Is patient prescribed a controlled substance at d/c from ED?: No Referrals: Kati Guerrero NPC [Primary Care Provider] - 1-2 days Time of Disposition: 09:57
[2021-06-04 09:27] LABS: Basophils # (A) 0.1 k/uL (0-0.2); Basophils % (A) 1 %; Eosinophils # (A) 0.1 k/uL (0-0.7); Eosinophils % (A) 1 %; HCT 46.7 % (39.0-53.0); HGB 16.6 gm/dL (13.0-17.5); Lymphocytes # (A) 1.6 k/uL (1.0-4.8); Lymphocytes % (A) 28 %; MCH 30.2 pg (25.0-35.0); MCHC 35.6 g/dL (31.0-37.0); MCV 84.7 fL (80.0-100.0); Monocytes # (A) 0.4 k/uL (0-1.0); Monocytes % (A) 8 %; Neutrophils # (A) 3.4 k/uL (1.3-7.7); Neutrophils % (A) 59 %; Platelet Count 208 k/uL (150-450); RBC 5.51 m/uL (4.30-5.90); WBC 5.7 k/uL (3.8-10.6)
[2021-06-04 09:52] LABS: ALT 16 U/L (4-49); AST 27 U/L (17-59); African American GFR (CKD) >90 (>60 ml/min/1.73 sqM); Albumin 4.6 g/dL (3.5-5.0); Alkaline Phosphatase 57 U/L (38-126); Anion Gap 7 mmol/L; Blood Urea Nitrogen 18 mg/dL (9-20); Calcium 9.4 mg/dL (8.4-10.2); Carbon Dioxide 29 mmol/L (22-30); Chloride 105 mmol/L (98-107); Glucose 93 mg/dL (74-99); Non-African American GFR(CKD) >90 (>60 ml/min/1.73 sqM); Potassium 4.2 mmol/L (3.5-5.1); Sodium 141 mmol/L (137-145); Total Bilirubin 0.7 mg/dL (0.2-1.3); Total Protein 7.1 g/dL (6.3-8.2)
[2021-06-04 10:28] VITALS: BP 120/86; PULSE 87; RESP 16; TEMP 98.4
== END 2021-06-04 10:27 | disposition home or self-care (01) ==
LOC: EC 08:48
DX: R51.9 Headache, unspecified (principal); R53.83 Other fatigue; J45.909 Unspecified asthma, uncomplicated; F41.9 Anxiety disorder, unspecified
CPT/HCPCS: 36415; 80053; 85025; 99283; 96374; 96375 ×2; J1200; J2765; J1885

== ENCOUNTER 2022-05-07 08:23 | Emergency (ER) | payer OTHER ==
[2022-05-07 08:33] VITALS: BP 134/98; PULSE 97; RESP 18; TEMP 98.2
--- NOTE | 2022-05-07 08:44 | ED ---
General Adult HPI - General Chief complaint: Skin/Abscess/Foreign Body Stated complaint: Dental issues Time Seen by Provider: 05/07/22 08:35 Source: patient, RN notes reviewed, old records reviewed Mode of arrival: ambulatory Limitations: no limitations - History of Present Illness Initial comments: 47-year-old male with previous history of MRSA infection presenting for evaluation of pain and swelling just underneath the chin and left side. He has noticed this for the past several days. He did attempt to pop a suspected abscess with some drainage. His been no fever or chills. No other complaints. - Related Data Home Medications Medication Instructions Recorded Confirmed Escitalopram [Lexapro] 20 mg PO DAILY 02/17/21 02/17/21 Gabapentin [Neurontin] 300 mg PO TID 02/17/21 02/17/21 Previous Rx's Medication Instructions Recorded Sulfamethox-Tmp 800-160Mg [Bactrim 1 tab PO Q12HR #20 tab 02/20/21 DS 800-160 mg] Cephalexin [Keflex] 500 mg PO QID #40 cap 05/07/22 Sulfamethox-Tmp 800-160Mg [Bactrim 1 tab PO Q12HR #20 tab 05/07/22 DS 800-160 mg] Allergies Allergy/AdvReac Type Severity Reaction Status Date / Time No Known Allergies Allergy Verified 05/07/22 08:33 Review of Systems ROS Statement: Those systems with pertinent positive or pertinent negative responses have been documented in the HPI. ROS Other: All systems not noted in ROS Statement are negative. Past Medical History Past Medical History: Asthma Additional Past Medical History / Comment(s): Hydrocephalus as 4 month old child/shunts then shunts removed, ankylosing spondylosis/cervical and low back pain, skin boils, nedphrolithiasis/pt passed stones on his own. History of Any Multi-Drug Resistant Organisms: MRSA Date of last positivie culture/infection: 02/17/21 MDRO Source:: Buttock Additional Past Surgical History / Comment(s): Brain shunt/then removed, vasectomy Past Psychological History: Anxiety Smoking Status: Never smoker Past Alcohol Use History: None Reported - Past Family History Father Additional Family Medical History / Comment(s): ankylosing spondylosis, pre diabetes. Mother Family Medical History: Thyroid Disorder Additional Family Medical History / Comment(s): hypothryroid General Exam Limitations: no limitations General appearance: alert, in no apparent distress Head exam: Present: atraumatic, normocephalic Eye exam: Present: normal appearance, PERRL ENT exam: Present: other (1.5 cm area of induration and minimal surrounding erythema just beneath the chin left side. No central fluctuance. Punctate opening in the center of this abscess.) Respiratory exam: Present: normal lung sounds bilaterally. Absent: respiratory distress Cardiovascular Exam: Present: regular rate, normal rhythm GI/Abdominal exam: Present: soft. Absent: distended, tenderness Extremities exam: Present: normal inspection, normal capillary refill. Absent: pedal edema Back exam: Present: full ROM Neurological exam: Present: alert, oriented X3, CN II-XII intact. Absent: motor sensory deficit Psychiatric exam: Present: normal affect, normal mood Skin exam: Present: warm, dry Course Vital Signs 05/07/22 08:29 Temperature 98.2 F Pulse Rate 97 Respiratory 18 Rate Blood Pressure 134/98 O2 Sat by Pulse 97 Oximetry Medical Decision Making - Medical Decision Making 47-year-old male patient has early abscess formation just below the chin and left side. There is some minimal surrounding cellulitis. He has previous history of MRSA infection. There is no central fluctuance to drain at this time. He will benefit from antibiotics and warm compresses. He's given return parameters including the formation of a drainable abscess. Fever. He will follow-up with his primary care physician. Disposition Clinical Impression: Abscess Disposition: HOME SELF-CARE Condition: Good Instructions (If sedation given, give patient instructions): Abscess (ED) Prescriptions: Sulfamethox-Tmp 800-160Mg [Bactrim DS 800-160 mg] 1 tab PO Q12HR #20 tab Cephalexin [Keflex] 500 mg PO QID #40 cap Is patient prescribed a controlled substance at d/c from ED?: No Referrals: [facility]inic [Primary Care Provider] - 1-2 days Time of Disposition: 08:43
== END 2022-05-07 08:55 | disposition home or self-care (01) ==
LOC: EC 08:23
DX: K04.7 Periapical abscess without sinus (principal); K12.2 Cellulitis and abscess of mouth; J45.909 Unspecified asthma, uncomplicated; F41.9 Anxiety disorder, unspecified; Z79.899 Other long term (current) drug therapy
CPT/HCPCS: 99282

== ENCOUNTER → 2023-08-04 | Outpatient (CLI) | payer OTHER ==
--- NOTE | 2023-08-04 14:54 | XR ---
EXAM TYPE: LUMBAR SPINE X RAY SERIES COMPARISON: NONE HISTORY: Pain TECHNIQUE: 4 views are submitted. FINDINGS: Alignment is anatomic. The pedicles are intact. The transverse processes are intact. There is diff use osteopenia. There is facet arthropathy L5-S1. Degenerative disc disease L5-S1. Small spurs along the anterior margin of the vertebral column. IMPRESSION: 1. Mild degenerative disc disease L5-S1 with facet arthropathy.
== END | disposition home or self-care (01) ==
LOC: RADXRMAIN 13:19
PROVIDERS: ATTEND Family Medicine
DX: M51.37 Other intervertebral disc degeneration, lumbosacral region (principal); M47.816 Spondylosis without myelopathy or radiculopathy, lumbar region
CPT/HCPCS: 72110

== ENCOUNTER 2024-05-21 20:19 | Emergency (ER) | payer OTHER ==
[2024-05-21 20:25] VITALS: RESP 18; TEMP 98.2
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
--- NOTE | 2024-05-21 21:17 | XR ---
EXAMINATION TYPE: XR hand complete RT DATE OF EXAM: 05/21/2024 8:55 PM CLINICAL INDICATION:Male, 49 years old with history of pain, injury to lateral hand; [facility] COMPARISON: None TECHNIQUE: 3 views FINDINGS: Osseous mineralization appears appropriate. No destructive bony lesion. No acute fracture or dislocat ion. Joint spaces are maintained. Unremarkable soft tissues. No radiopaque foreign body is seen. IMPRESSION: No evidence of fracture or dislocation.
[2024-05-21 21:58] VITALS: BP 123/86; PULSE 80
== END 2024-05-21 22:01 | disposition home or self-care (01) ==
LOC: EC 20:19
DX: S01.81XA Laceration without foreign body of other part of head, initial encounter (principal); M79.641 Pain in right hand; Y04.8XXS Assault by other bodily force, sequela
CPT/HCPCS: 99284

== ENCOUNTER 2024-06-11 13:07 | Emergency (ER) | payer OTHER ==
[2024-06-11 13:30] VITALS: RESP 18
[2024-06-11] MEDS: DIPH,PERTUS(ACELL)TETVAC-LF 0.5 ML VIAL IM ONE (14:00)
[2024-06-11] MEDS ORDERED: RABIES IMM GLOB 300 UNIT/2 ML VIAL IM ONE (14:22)
--- NOTE | 2024-06-11 14:25 | XR ---
EXAMINATION TYPE: XR hand complete RT DATE OF EXAM: 06/11/2024 2:09 PM CLINICAL INDICATION:Male, 49 years old with history of dog bite fifth metacarpal; COMPARISON: None TECHNIQUE: XR hand complete RT Frontal, lateral and oblique views were obtained. FINDINGS: Normal alignment of the visualized joints. No acute osseous pathology is identified. No e vidence of soft tissue swelling. No significant degeneration. No radiopaque foreign body. IMPRESSION: 1. No acute osseous pathology. 2. No radiopaque foreign body.
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
[2024-06-11] MEDS: RABIES VACCINE (PCEC) 2.5 UNIT KIT IM ONE (14:51)
[2024-06-11 15:25] VITALS: BP 136/76; PULSE 86; TEMP 98.4
== END 2024-06-11 15:26 | disposition home or self-care (01) ==
LOC: EC 13:07
DX: S61.451A Open bite of right hand, initial encounter (principal); S80.812A Abrasion, left lower leg, initial encounter; S80.811A Abrasion, right lower leg, initial encounter; Z23 Encounter for immunization; Z20.3 Contact with and (suspected) exposure to rabies; W54.0XXA Bitten by dog, initial encounter
CPT/HCPCS: 90471; 90472; 90675; 90715; 99283